=== PATIENT | male | born 1950 | race Two or more races ===

== ENCOUNTER 2025-01-10 10:09 | Emergency (ER) | payer OTHER ==
[~2025-01-10] VITALS: Ht 170.2 cm; Wt 95.3 kg
[2025-01-10] MEDS ORDERED: TENORMIN25 MG (10:26)
[2025-01-10] MEDS ORDERED: OXYBUTYNIN CHLOR5 M1 PO (10:27)
[2025-01-10] MEDS ORDERED: CO Q-1010 MG (10:27)
[2025-01-10] MEDS ORDERED: ATORVASTATIN CA40 MG PO (10:27)
[2025-01-10] MEDS ORDERED: ADULT LOW DOSE81 M1 (10:28)
[2025-01-10] MEDS ORDERED: ALLOPURINOL300 MG PO (10:28)
[2025-01-10] MEDS ORDERED: EZETIMIBE10 MG PO (10:28)
[2025-01-10] MEDS ORDERED: AMLODIPINE-OLM1 EAC2 (10:29)
[2025-01-10] MEDS ORDERED: KETOROLAC TROMETHAMINE 15 MG VIAL IM STA (10:41)
[2025-01-10 11:15] LABS: HEMATOCRIT 45.1 % (39.0-48.0); HEMOGLOBIN 14.9 g/dL (13-16.00); MEAN CELL VOLUME 88.1 fL (80.0-100.00); MEAN CORPUSCULAR HEMOGLOBIN 29.2 pg (27.00-32.0); MEAN CORPUSCULAR HGB CONC 33.1 g/dl (32.0-36.0); PLATELET COUNT 199 K/uL (150-450); RED BLOOD COUNT 5.12 M/uL (4.00-6.00); RED CELL DISTRIBUTION WIDTH 13.6 % (11.5-14.5)
[2025-01-10 11:44] LABS: CALCIUM 9.5 mg/dL (8.5-10.1); CREATININE SERUM 0.89 mg/dL (0.70-1.30); GFR 83.11; POTASSIUM 4.08 mEq/L (3.5-5.1)
== END 2025-01-10 14:00 | disposition home or self-care (01) ==
LOC: ER 10:11
PROVIDERS: Emergency Medicine
DX: S20.212A Contusion of left front wall of thorax, initial encounter (principal); X58.XXXA Exposure to other specified factors, initial encounter; Y93.89 Activity, other specified; Y92.89 Other specified places as the place of occurrence of the external cause; Y99.9 Unspecified external cause status; R07.89 Other chest pain; I10 Essential (primary) hypertension
CPT/HCPCS: 36415; 71046; 93005; 96372; 99283; J1885